=== PATIENT | male | born 1960 | race Caucasian/White ===

== ENCOUNTER → 2020-05-22 09:49 | Outpatient (BNVA) | payer MEDICARE, SELFPAY | PROVIDERS: Family Provider Internal Medicine; PCP Internal Medicine; Visit Provider Nurse Practitioner Family | DX: Z20.828 Contact with and (suspected) exposure to other viral communicable diseases (principal); J06.9 Acute upper respiratory infection, unspecified | CPT/HCPCS: 87635 ==

== ENCOUNTER → 2020-09-07 10:29 | Outpatient (BNVA) | payer MEDICARE, SELFPAY | PROVIDERS: Family Provider Internal Medicine; PCP Internal Medicine; Visit Provider Nurse Practitioner Family | DX: M25.511 Pain in right shoulder (principal); Y93.68 Activity, volleyball (beach) (court); Z68.41 Body mass index [BMI] 40.0-44.9, adult | CPT/HCPCS: 73030 ==

== ENCOUNTER → 2021-01-18 16:50 | Outpatient (BNVA) | payer MEDICARE, SELFPAY | PROVIDERS: Family Provider Internal Medicine; PCP Internal Medicine; Visit Provider Nurse Practitioner Family | DX: J06.9 Acute upper respiratory infection, unspecified (principal); Z20.822 Contact with and (suspected) exposure to COVID-19 | CPT/HCPCS: 87635 ==

== ENCOUNTER 2021-01-25 18:28 | Emergency (ER) | payer MEDICARE, SELFPAY ==
[2021-01-25 18:44] VITALS: BP 183/51; PULSE 86; RESP 19; TEMP 39.5; O2SAT 97; BMI 43.5
--- NOTE | 2021-01-25 19:55 | XRR_ITS ---
PROCEDURE INFORMATION: Exam: XR Chest Exam date and time: 01/25/2021 7:55 PM Age: 60 years old Clinical indication: Cough TECHNIQUE: Imaging protocol: XR of the chest. Views: 1 view. COMPARISON: CT chest con [id number] 04/22/2016 9:23 AM FINDINGS: Lungs: Mild left lateral pulmonary opacities suggesting left peripheral pneumonia. Pleural spaces: Unremarkable. No pleural effusion. No pneumothorax. Heart/Mediastinum: Unremarkable. No cardiomegaly. Bones/joints: Unremarkable. XR/XR chest 1V portable [id number] IMPRESSION: Mild left lateral pulmonary opacities suggesting left peripheral pneumonia.
--- NOTE | 2021-01-25 19:58 | W.ED.COVID ---
HPI - COVID General: Chief Complaint: COVID symptoms Stated Complaint: COVID +/LOW O2/NAUSEA Time Seen by Provider: 01/25/21 19:54 Triage information: Has fever, cough or shortness of breath. No known COVID + exposure last 14 days History of Present Illness: HPI Narrative: This patient is a 60-year-old male who presents to the emergency department with Covid pneumonia. Patient was diagnosed 7 days ago. Patient states for the past days had increased fevers and just body aches. Patient states his oxygen levels have been remaining stable around 97% on room air. States he had a high fever and just feels terrible. Will do medical evaluation treat as needed MD complaint: known COVID positive COVID 19 common symptoms: positive fever(s), non-productive cough, fatigue and body aches; negative headache(s), throat pain, nausea or vomiting COVID 19 other sytmptoms: negative chest pain COVID Results: SARS-CoV-2 RNA (RT-PCR) Detected (NOT DETECTED) A 01/18/21 16:50 01/18/21 Review of Systems General: Reports: 10 or more systems reviewed and unremarkable except in HPI and below Const: Reports: fever(s), body aches and fatigue Eyes: Denies: change in vision or blurry vision ENMT: Denies: throat pain, hoarseness or mouth pain Card: Denies: chest pain, palpitations, irregular heart rhythm, edema, swelling of feet/ankles or lightheadedness Resp: Reports: non-productive cough GI: Denies: abdominal pain, nausea or vomiting : Denies: flank pain, dysuria, urinary frequency, urinary urgency or urinary hesitancy Musc: Denies: neck pain, back pain, extremity pain, extremity swelling, joint pain, joint swelling, joint redness, joint warmth or limited range of motion Skin/Breast: Denies: rash, pruritus, erythema or skin tenderness Neuro: Denies: headache(s), numbness in extremities or weakness in extremities Psych: Denies: anxiety or depression PFSH ED PFSH: Family History Father Diabetes Denies family history of CAD (coronary artery disease) Clotting disorder Chronic kidney disease (CKD) Bleeding disorder Cancer Hypertension Stroke Social History Smoking and tobacco status: former smoker Quit status (tobacco): has quit using tobacco Year quit tobacco: 1992 Former quit date comment: 2 PPD x 20 yrs Second hand smoke exposure: No Alcohol intake: never Caregiver/support person: Yes Lives independently: Yes Household members: spouse Marital status: service: No Current occupational status: employed Current occupation: [employer] History of recent travel: No Current gender identity: Female Special j luis needs: No Agree to transfusion: Yes Physical Exam Const: COMMON NORMALS: no acute distress, average body habitus, patient oriented x3, no limitations, healthy appearing, alert and well nourished HENMT: COMMON NORMALS: normocephalic, atraumatic, hearing grossly normal bilaterally, external ears normal, EAC's normal, TM's normal bilaterally, Normal external nose present, Normal nasal mucous membranes and turbinates present, moist oral mucous membranes, oropharynx normal, dentition normal and gingiva normal HEAD & SCALP: normocephalic and atraumatic NOSE: Normal external nose present and Normal nasal mucous membranes and turbinates present EXTERNAL EAR: Yes external ears normal EXTERNAL AUDITORY CANAL: EAC's normal TYMPANIC MEMBRANE: TM's normal bilaterally Neck/C-Spine: COMMON NORMALS: full ROM, no lymphadenopathy, supple, no meningeal signs, no JVD, Thyroid normal and No carotid bruits THYROID: Thyroid normal Chest: COMMONS NORMALS: normal inspection of the chest, normal palpation of entire chest wall, normal inspection of the breasts and normal palpation of the breasts Breast/axilla inspection: Yes normal inspection of the breasts BREAST/AXILLA PALPATION: Yes normal palpation of the breasts Resp: COMMON NORMALS: normal respiratory effort, No retractions, No use of accessory muscles, clear to auscultation bilaterally and percussion normal AUSCULTATION: clear to auscultation bilaterally PERCUSSION: percussion normal Cardio: COMMON NORMALS: no JVD, regular rate, regular rhythm, S1 normal heart sound present, S2 normal heart sound present, No gallops present (Cardio), No clicks present (Cardio), No murmurs present (Cardio), No rub (Cardio) and Peripheral pulses 2+ throughout RATE: regular rate RHYTHM: regular rhythm HEART SOUNDS: S1 normal heart sound present and S2 normal heart sound present PERIPHERAL PULSES: Peripheral pulses 2+ throughout GI: COMMON NORMALS: Normal to inspection, nondistended, normoactive bowel sounds present, Soft to palpation, non-tender, No hepatosplenomegaly present, no masses and no bruits PALPATION: Yes Soft to palpation and Yes No hepatosplenomegaly present Back/Pelvis: COMMON NORMALS: thoracic and lumbar spine normal to inspection, no thoracic nor lumbar tenderness, thoraco-lumbar ROM normal and straight leg raise negative bilaterally Extremity: COMMON NORMALS: normal to inspection, full ROM, capillary refill normal, no joint enlargement, no clubbing, cyanosis or edema, no calf tenderness and no pedal edema Neuro: COMMON NORMALS: patient oriented x3 SENSORIUM/ORIENTATION: Yes alert MENINGEAL SIGNS: Yes no meningeal signs Course Reevaluation(s): Reevaluation #1: Patient is stable does not appear to have any acute issues related to his COVID-19 infection. Patient is to encourage p.o. fluids continue with home quarantine. And follow-up with PCP in 2 to 3 days may continue with Tylenol Motrin. As needed. Patient is discharged home. Vital Signs: Vital signs: Vital Signs Temperature 103.1 F H 01/25/21 18:44 Pulse Rate 95 01/25/21 20:22 Respiratory Rate 19 H 01/25/21 20:22 Blood Pressure 124/83 01/25/21 20:22 Pulse Oximetry 99 01/25/21 20:22 MDM - COVID MDM Narrative: Medical decision making narrative: Patient is stable does not appear to have any acute issues related to his COVID-19 infection. Patient is to encourage p.o. fluids continue with home quarantine. And follow-up with PCP in 2 to 3 days may continue with Tylenol Motrin. As needed. Patient is discharged home. Differential Diagnosis: Differential diagnosis: Likely COVID 19, other viral infection, pneumonia, copd exacerbation and pulmonary embolism Medical Records: Attestation: I reviewed the patient's medical records. Lab Data: Attestation: I reviewed the patient's lab results. Labs: Lab Results 01/25/21 01/25/21 01/25/21 Range/Units 20:03 20:03 20:03 WBC 5.0 (4.0-10.0) 10^3/ uL RBC 4.82 (4.1-5.3) 10^6/u L Hgb 14.4 (11.7-16.6) g/dL Hct 43.4 (42.0-52.0) % MCV 90.0 (80-94) fL MCH 29.9 (28.0-34.0) pg MCHC 33.2 (30.0-36.0) g/dL RDW 12.1 (12.1-15.1) % Plt Count 118 L (130-400) 10^3/c mm MPV 12.3 H (7.4-10.4) fL Neut % (Auto) 64.8 % Lymph % (Auto) 24.8 % [place] % (Auto) 9.8 % Eos % (Auto) 0.0 % Baso % (Auto) 0.2 % Neut # (Auto) 3.23 (1.8-7.7) 10^3/u L Lymph # (Auto) 1.2 (0.8-4.8) 10^3/u L [place] # (Auto) 0.5 (0.2-0.9) 10^3/u L Eos # (Auto) 0.0 (0.0-0.8) 10^3/u L Baso # (Auto) 0.0 (0.0-0.1) 10^3/u L Nucleated RBC % (a uto) 0 % Nucleated RBCs # 0.0 /100WBC PT 13.60 (12.1-14.9) SECO NDS INR 1.01 (0.8-1.2) APTT 32.8 (23.9-36.7) SECO NDS D-Dimer 0.61 H (0-0.59) ug/mIFE U Sodium 131 L (136-145) mmol/L Potassium 4.2 (3.5-5.1) mmol/L Chloride 95 L (98-107) mmol/L Carbon Dioxide 23 (22-29) mmol/L Anion Gap 17.2 (5-19) BUN 9 (6-20) mg/dL Creatinine 1.0 (0.7-1.2) mg/dL GFR Calculation 76.5 L (90-130) mL/min Glucose 108 (65-115) mg/dL Calculated Osmolal ity 271 L (285-295) mOsm/k g Lactic Acid (0.5-2.2) mmol/L Calcium 8.4 L (8.5-10.5) mg/dL Total Bilirubin 0.3 (0.15-1.2) mg/dL AST 42 H (0-40) U/L ALT 36 (0-41) U/L Alkaline Phosphata se 73 (40-130) IU/L Total Protein 6.8 (6.6-8.7) g/dL Albumin 4.0 (3.5-5.2) g/dL Globulin 2.8 (1.3-4.6) g/dL 01/25/21 Range/Units 20:03 WBC (4.0-10.0) 10^3/ uL RBC (4.1-5.3) 10^6/u L Hgb (11.7-16.6) g/dL Hct (42.0-52.0) % MCV (80-94) fL MCH (28.0-34.0) pg MCHC (30.0-36.0) g/dL RDW (12.1-15.1) % Plt Count (130-400) 10^3/c mm MPV (7.4-10.4) fL Neut % (Auto) % Lymph % (Auto) % [place] % (Auto) % Eos % (Auto) % Baso % (Auto) % Neut # (Auto) (1.8-7.7) 10^3/u L Lymph # (Auto) (0.8-4.8) 10^3/u L [place] # (Auto) (0.2-0.9) 10^3/u L Eos # (Auto) (0.0-0.8) 10^3/u L Baso # (Auto) (0.0-0.1) 10^3/u L Nucleated RBC % (a uto) % Nucleated RBCs # /100WBC PT (12.1-14.9) SECO NDS INR (0.8-1.2) APTT (23.9-36.7) SECO NDS D-Dimer (0-0.59) ug/mIFE U Sodium (136-145) mmol/L Potassium (3.5-5.1) mmol/L Chloride (98-107) mmol/L Carbon Dioxide (22-29) mmol/L Anion Gap (5-19) BUN (6-20) mg/dL Creatinine (0.7-1.2) mg/dL GFR Calculation (90-130) mL/min Glucose (65-115) mg/dL Calculated Osmolal ity (285-295) mOsm/k g Lactic Acid 0.8 (0.5-2.2) mmol/L Calcium (8.5-10.5) mg/dL Total Bilirubin (0.15-1.2) mg/dL AST (0-40) U/L ALT (0-41) U/L Alkaline Phosphata se (40-130) IU/L Total Protein (6.6-8.7) g/dL Albumin (3.5-5.2) g/dL Globulin (1.3-4.6) g/dL Imaging Data: CXR: Attestation: I personally reviewed and interpreted this imaging study as follows: My impression: IMPRESSION: Mild left lateral pulmonary opacities suggesting left peripheral pneumonia. COVID Results: SARS-CoV-2 RNA (RT-PCR) Detected (NOT DETECTED) A 01/18/21 16:50 01/18/21 Discharge Plan Discharge Patient Disposition: Home Clinical Impression: Upper respiratory infection, COVID-19 Condition: Stable Prescriptions: No Action tramadol 50 mg tablet 50 mg PO BID PRN (Reason: Pain) RF: 0 albuterol sulfate [ProAir HFA] 90 mcg/actuation HFA aerosol inhaler 2 puff inhalation Q6H PRN (Reason: Shortness Of Breath) RF: 0 trazodone 50 mg tablet 25 mg PO DAILY PRN (Reason: insomnia) RF: 0 doxycycline hyclate 100 mg capsule 100 mg PO BID 10 Days Qty: 20 RF: 0 Discharge Orders: Discharge ED (Routine); Ordered 01/25/21 Ordered By: Jarett Plascencia Referrals: Karolyn Garcias MD [Primary Care Provider] - Discharge Diet: Advance as tolerated Discharge Activity: Resume usual activity Patient Instructions: Opioid Safety Activity Restrictions/Additional Instructions: Encourage p.o. fluids. Tylenol Motrin as needed as needed for fever pain get plenty rest. Advance diet as tolerated. Continue quarantine until symptom-free. Follow-up with PCP in 5 to 7 days as needed. Coding Level of Care Code ED Finance Manager for Chg Fwd Exam Comprehensive
[2021-01-25 20:12] VITALS: O2SAT 99
[2021-01-25] MEDS: acetaminophen 325 mg Tablet 650 MG PO (20:14)
[2021-01-25 20:15] LABS: Basophils % 0.2 %; Hematocrit 43.4 % (42.0-52.0); Hemoglobin 14.4 g/dL (11.7-16.6); Lymphocytes # 1.2 10^3/uL (0.8-4.8); Lymphocytes % 24.8 %; Mean Corpuscular HGB Conc 33.2 g/dL (30.0-36.0); Mean Corpuscular Hemoglobin 29.9 pg (28.0-34.0); Mean Platelet Volume 12.3 fL (7.4-10.4); Monocytes # 0.5 10^3/uL (0.2-0.9); Monocytes % 9.8 %; Neutrophils # 3.23 10^3/uL (1.8-7.7); Neutrophils % 64.8 %; Nucleated Red Blood Cells % 0 %; Platelet Count 118 10^3/cmm (130-400); Red Blood Count 4.82 10^6/uL (4.1-5.3); Red Cell Distribution Width 12.1 % (12.1-15.1)
[2021-01-25] MEDS: benzonatate 100 mg Capsule PO (20:15)
[2021-01-25] MEDS: dexamethasone 10 mg/mL INJ IV (20:15)
[2021-01-25] MEDS: ketorolac 30 mg/mL INJ 15 MG IVP (20:15)
[2021-01-25 20:22] VITALS: BP 124/83; PULSE 95; RESP 19; O2SAT 99
[2021-01-25 20:26] LABS: INR 1.01 (0.8-1.2)
[2021-01-25 20:28] LABS: Partial Thromboplastin Time 32.8 SECONDS (23.9-36.7)
[2021-01-25 20:30] LABS: D Dimer 0.61 ug/mIFEU (0-0.59)
[2021-01-25 20:31] LABS: Lactic Sepsis W/Reflex 0.8 mmol/L (0.5-2.2)
[2021-01-25 20:32] LABS: Alanine Aminotransferase 36 U/L (0-41); Alkaline Phosphatase 73 IU/L (40-130); Anion Gap 17.2 (5-19); Aspartate Amino Transferase 42 U/L (0-40); Blood Urea Nitrogen 9 mg/dL (6-20); Calcium 8.4 mg/dL (8.5-10.5); Carbon Dioxide 23 mmol/L (22-29); Chloride 95 mmol/L (98-107); Globulin 2.8 g/dL (1.3-4.6); Glomerular Filtration Rate 76.5 mL/min (90-130); Glucose 108 mg/dL (65-115); Osmolality Calculated 271 mOsm/kg (285-295); Potassium 4.2 mmol/L (3.5-5.1); Sodium 131 mmol/L (136-145); Total Bilirubin 0.3 mg/dL (0.15-1.2); Total Protein 6.8 g/dL (6.6-8.7)
[2021-01-25 20:33] LABS: Slide Review Slide Review Perform
[2021-01-25] MEDS: ondansetron 2 mg/ML SDV 2 mL 4 MG IVP (20:49)
[2021-01-25 21:43] VITALS: BP 140/80; PULSE 79; O2SAT 99
== END 2021-01-25 21:43 | disposition home or self-care (01) ==
PROVIDERS: Emergency Provider Emergency Medicine; PCP Internal Medicine
DX: U07.1 COVID-19 (principal); J06.9 Acute upper respiratory infection, unspecified; Z87.891 Personal history of nicotine dependence
CPT/HCPCS: 71045; 80053; 83605; 85025; 85378; 85610; 85730; 87040; 87205; 96374; 96375; 99283; J1100; J1885; J2405

== ENCOUNTER 2021-02-01 18:00 | Emergency (ER) | payer MEDICARE, SELFPAY ==
[2021-02-01 13:06] VITALS: BP 148/89; PULSE 91; RESP 18; TEMP 37.5; O2SAT 96
--- NOTE | 2021-02-01 14:42 | XR_ITS ---
WS: [id number] PROCEDURE: XR chest 2V* [id number] CLINICAL INFORMATION: COUGH/SOB COMPARISON: January 25, 2021 FINDINGS: Heart: Cardiomegaly. Lungs: Bilateral hazy mid and lower lung subpleural pulmonary infiltrates, worse in the left. Recomme nd correlation for COVID 19 pneumonia. Infiltrates appear unchanged since January 25, 2021. Bones: Hypertrophic changes thoracic spine. XR/XR chest 2V* [id number] IMPRESSION: 1. Stable cardiomegaly. 2. Bilateral hazy subpleural mid and lower lung pulmonary infiltrates suspicio us for COVID 19 pneumonia. This is not significantly changed since January 25. 3. No other significant interval changes.
== END 2021-02-01 18:01 | disposition home or self-care (01) ==
LOC: ER 02-02 12:00
PROVIDERS: Emergency Provider Pediatrics; PCP Internal Medicine; Visit Provider Internal Medicine
DX: R05 Cough (principal); R06.02 Shortness of breath
CPT/HCPCS: 71046

== ENCOUNTER → 2022-08-13 10:56 | Outpatient (BNVA) | payer MEDICARE, SELFPAY | PROVIDERS: PCP Internal Medicine; Visit Provider Surgery | DX: Z12.11 Encounter for screening for malignant neoplasm of colon (principal); Z80.0 Family history of malignant neoplasm of digestive organs | CPT/HCPCS: 99024; 99203 ==

== ENCOUNTER 2025-06-10 13:43 | Outpatient (CLI) | payer MEDICARE, SELFPAY ==
--- NOTE | 2025-06-10 14:10 | XR_ITS ---
WS: [id number] Exam: XR thoracic spine min 4V [id number] Date/Time of Exam: 06/10/2025 2:10 PM Reason For Exam: DEGENERATION OF THORACIC INTERVERTEBRAL DISC No acute fracture. Marked spondylosis with bridging osteophytes throughout most of the T-spine. Degenerative disc thinning at all levels. Paraspinal soft tissues are unremarkable. XR/XR thoracic spine min 4V [id number] IMPRESSION: 1. No fracture or malalignment. 2. Extensive spondylosis and degenerative changes.
== END 2025-06-10 13:44 | disposition home or self-care (01) ==
PROVIDERS: PCP Internal Medicine; Visit Provider Internal Medicine
DX: M51.34 Other intervertebral disc degeneration, thoracic region (principal); M47.816 Spondylosis without myelopathy or radiculopathy, lumbar region
CPT/HCPCS: 72074